=== PATIENT | male | born 1970 | race African-American/Black ===

== ENCOUNTER 2016-05-16 21:47 | Emergency (ER) | payer SELFPAY ==
[~2016-05-16] VITALS: Ht 167.6 cm; Wt 136.5 kg
[2016-05-16 22:09] VITALS: BP 186/106
[2016-05-16] MEDS ORDERED: Losartan 25mg tab ORAL ONE (22:30)
[2016-05-16] MEDS ORDERED: HYDROCHLOROTHIA25 MG ORAL (22:53)
[2016-05-16] MEDS ORDERED: LOSARTAN POTAS100 MG ORAL (22:53)
[2016-05-16 23:05] VITALS: BP 186/106
--- NOTE | 2016-05-17 00:42 | Emergency Room Report ---
History of Present Illness General Chief Complaint: Hypertension Source: Patient Present Illness HPI 46-year-old male presents ED for evaluation. Patient states his blood pressure is high. States that he took his last BP med 2 days ago. Denies any chest pain. Denies any dizziness. Denies any shortness of breath. Denies smoking or drug use. No other aggravating relieving factors. Denies any other associated symptoms Allergies: Coded Allergies: No Known Allergies (Unverified , 05/16/16) Patient History Past Medical History: HTN Past Surgical History: none Pertinent Family History: none Social History: Denies: alcohol use, drug use, smoking Immunizations: UTD Reviewed Nursing Documentation: PMH: Agreed, PSxH: Agreed Nursing Documentation-PMH Hx Hypertension: Yes Review of Systems All Other Systems: negative except mentioned in HPI Physical Exam Vital Signs Date Time Temp Pulse Resp B/P Pulse Ox O2 Delivery O2 Flow Rate FiO2 05/16/16 21:58 97.9 77 16 192/113 96 Room Air Sp02 EP Interpretation: reviewed, normal General Appearance: no apparent distress, alert, GCS 15, non-toxic, obese Head: normocephalic, atraumatic Eyes: bilateral eye PERRL, bilateral eye normal inspection ENT: hearing grossly normal, normal pharynx, no angioedema, normal voice Neck: full range of motion, supple/symm/no masses Respiratory: chest non-tender, lungs clear, normal breath sounds, speaking full sentences Cardiovascular #1: regular rate, rhythm, no edema Cardiovascular #2: 2+ carotid (R), 2+ carotid (L), 2+ radial (R), 2+ radial (L) , 2+ dorsalis pedis (R), 2+ dorsalis pedis (L) Gastrointestinal: normal bowel sounds, non tender, soft, non-distended, no guarding, no rebound Rectal: deferred Genitourinary: normal inspection, no CVA tenderness Musculoskeletal: back normal, gait/station normal, normal range of motion, non- tender Neurologic: alert, oriented x3, responsive, motor strength/tone normal, sensory intact, speech normal Psychiatric: judgement/insight normal, memory normal, mood/affect normal, no suicidal/homicidal ideation Reflexes: 3+ bicep (R), 3+ bicep (L), 3+ tricep (R), 3+ tricep (L), 3+ knee (R) , 3+ knee (L) Skin: normal color, no rash, warm/dry, well hydrated Lymphatic: no adenopathy Medical Decision Making Diagnostic Impression: Primary Impression: Hypertension Qualified Codes: I10 - Essential (primary) hypertension ER Course Hospital Course 46-year-old male presents ED complaining of elevated BP Differential diagnoses include: hypertensive urgency, hypertensive emergency, arrythmia, OK Clinical course Patient placed on stretcher. After initial history and physical I ordered EKG. I ordered patient 100 mg Losartan EKG - NSR, no acute changes This is asymptomatic hypertension and does not require further workup. Patient appears clinically well with negative exam. patient will be discharged on his home medications I. I feel this is a highly complex case requiring extensive working including EKG/Rhythm strip, Xray/CT/US, Blood/urine lab work, repeat exams while in ED, and administration of strong opiates/narcotics for pain control, admission to hospital or close patient follow up. Diagnosis - hypertension Stable and discharged to home with Rx Losartan, HCTZ. Instructed to followup with PMD. Return to ED if symptoms recur or worsen EKG Diagnostic Results Rate: normal Rhythm: NSR ST Segments: no acute changes ASA given to the pt in ED: No Rhythm Strip Diag. Results EP Interpretation: yes Rhythm: NSR, no PVC's, no ectopy Last Vital Signs Date Time Temp Pulse Resp B/P Pulse Ox O2 Delivery O2 Flow Rate FiO2 05/16/16 23:05 97.9 89 16 186/106 96 Room Air Status: improved Disposition: HOME, SELF-CARE Condition: Stable Scripts Losartan Potassium (LOSARTAN POTASSIUM) 100 Mg Tablet 100 MG ORAL DAILY, #30 TAB Prov: PORTILLO RESENDIZ M.D. 05/16/16 Hydrochlorothiazide* (HYDROCHLOROTHIAZIDE*) 25 Mg Tablet 25 MG ORAL DAILY, #30 TAB Prov: PORTILLO RESENDIZ M.D. 05/16/16 Referrals: NON PHYSICIAN (PCP) Patient Instructions: Hypertension, [id number] PORTILLO RESENDIZ M.D. May 17, 2016 00:42
--- NOTE | 2016-05-20 22:27 | Cardiology Report ---
APPROVED REPORT EKG Measurement Heart [id number] Sinus rhythm with 1st degree AV block Left axis deviation Cannot rule out Anterior infarct, age undetermined Abnormal ECG
== END 2016-05-16 23:05 | disposition home or self-care (01) ==
LOC: EMR 22:15
DX: I10 Essential (primary) hypertension (principal)
CPT/HCPCS: 93005; 99284

== ENCOUNTER 2019-01-15 06:22 | Emergency (ER) | payer OTHER ==
[~2019-01-15] VITALS: Ht 170.2 cm; Wt 142.9 kg
[~2019-01-15 06:22] MED LIST: HYDROCHLOROTHIA25 MG ORAL; LOSARTAN POTAS100 MG ORAL
[2019-01-15] MEDS ORDERED: CATAPRES0.1 MG ORAL (06:32)
[2019-01-15 06:45] VITALS: BP 190/93
[2019-01-15] MEDS ORDERED: Dicyclomine HCl 10mg/5ml oral soln ORAL ONE (06:45)
[2019-01-15] MEDS ORDERED: Mylanta II UD 30ml ORAL ONE (06:45)
[2019-01-15] MEDS ORDERED: DiphenhydrAMINE 50mg/ml Inj IVP ONE ×2 (06:45→07:30)
--- NOTE | 2019-01-15 06:45 | NUR ---
ED Nurse Note: pt presents to ED c/o LOPEZ and abd pain since yesterday. per pt he has been nauseated, has vomited once and has had multiple episodes of diarrhea that have been "all liquid." pt rates the LOPEZ pain a 10/10 and the abd px a 8/10. 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 pt has a h/o HTN but has not been regularly taking his losartan, he did not take it today. BP is 190/93. pt states that last time he experienced this was this time last year when he had a 24 hr viral gastritis.
[2019-01-15] MEDS ORDERED: ZOFRAN4 MG ORAL (06:47)
--- NOTE | 2019-01-15 06:47 | Emergency Room Report ---
History of Present Illness General Chief Complaint: Headache Source: Patient, Medical Record Present Illness HPI 48-year-old male history of hypertension, presents with nausea, 1 episode of vomiting, 10 episodes of diarrhea yesterday, constant, abdominal cramps no aggravating alleviating factors severity is moderate, constant patient presents for evaluation, he states he feels a little lightheaded, fatigue, no chest pain or shortness of breath he endorses chills but no fevers Allergies: Coded Allergies: No Known Allergies (Unverified , 05/16/16) Patient History Past Medical History: see triage record Reviewed Nursing Documentation: PMH: Agreed; PSxH: Agreed Nursing Documentation-PMH Past Medical History: No History, Except For Hx Hypertension: Yes Review of Systems All Other Systems: negative except mentioned in HPI Physical Exam Vital Signs Date Time Temp Pulse Resp B/P (MAP) Pulse Ox O2 Delivery O2 Flow Rate FiO2 01/15/19 06:25 98.4 95 18 204/138 (160) 96 Room Air Sp02 EP Interpretation: reviewed, normal General Appearance: well appearing, no apparent distress, alert Head: normocephalic, atraumatic Eyes: bilateral eye PERRL, bilateral eye EOMI ENT: uvula midline, dry mucus membranes Neck: supple, thyroid normal, supple/symm/no masses Respiratory: lungs clear, no respiratory distress, no retraction, no accessory muscle use Cardiovascular #1: normal peripheral pulses, regular rate, rhythm, no edema, no gallop, no murmur Gastrointestinal: non tender, soft, no guarding, no rebound Musculoskeletal: normal inspection Neurologic: alert, oriented x3 Psychiatric: mood/affect normal Skin: no rash, warm/dry Medical Decision Making Diagnostic Impression: Primary Impression: Gastroenteritis Additional Impression: Dehydration ER Course 48-year-old male presents with symptoms consistent with bowel gas rule enteritis , no chest pain or shortness of breath differential diagnosis includes gastroenteritis, diverticulitis, appendicitis, symptomatic control with medications, rehydration therapy Reevaluation patient's abdomen remains soft nontender, patient feels better with GI cocktail Labs nonfocal Counseled patient to follow-up with primary care doctor for outpatient stress testing as well as follow-up, will provide Zofran as an outpatient Strict abdominal return precautions were discussed include including return precautions for appendicitis Disposition Home Laboratory Tests Test 01/15/19 06:40 White Blood Count 6.9 K/UL (4.8-10.8) Red Blood Count 5.63 M/UL (4.70-6.10) Hemoglobin 16.3 G/DL (14.2-18.0) Hematocrit 45.3 % (42.0-52.0) Mean Corpuscular Volume 80 FL (80-99) Mean Corpuscular Hemoglobin 28.9 PG (27.0-31.0) Mean Corpuscular Hemoglobin Concent 35.9 G/DL (32.0-36.0) Red Cell Distribution Width 10.6 % (11.6-14.8) L Platelet Count 228 K/UL (150-450) Mean Platelet Volume 9.0 FL (6.5-10.1) Neutrophils (%) (Auto) 73.2 % (45.0-75.0) Lymphocytes (%) (Auto) 18.1 % (20.0-45.0) L Monocytes (%) (Auto) 6.6 % (1.0-10.0) Eosinophils (%) (Auto) 0.6 % (0.0-3.0) Basophils (%) (Auto) 1.5 % (0.0-2.0) Urine Color Yellow Urine Appearance Clear Urine pH 5 (4.5-8.0) Urine Specific [place] 1.015 (1.005-1.035) Urine Protein 2+ (NEGATIVE) H Urine Glucose (UA) Negative (NEGATIVE) Urine Ketones Negative (NEGATIVE) Urine Blood 2+ (NEGATIVE) H Urine Nitrite Negative (NEGATIVE) Urine Bilirubin Negative (NEGATIVE) Urine Urobilinogen Normal MG/DL (0.0-1.0) Urine Leukocyte Esterase 1+ (NEGATIVE) H Urine RBC 2-4 /HPF (0 - 0) H Urine WBC 5-10 /HPF (0 - 0) H Urine Squamous Epithelial Cells Occasional /LPF Urine Bacteria Occasional /HPF (NONE) Urine Mucus Few /LPF (NONE/OCC) H Sodium Level 136 MMOL/L (136-145) Potassium Level 3.7 MMOL/L (3.5-5.1) Chloride Level 103 MMOL/L (98-107) Carbon Dioxide Level 30 MMOL/L (21-32) Anion Gap 3 mmol/L (5-15) L Blood Urea Nitrogen 15 mg/dL (7-18) Creatinine 1.4 MG/DL (0.55-1.30) H Estimate Glomerular Filtration Rate > 60 mL/min (>60) Glucose Level 144 MG/DL (74-106) H Calcium Level 8.6 MG/DL (8.5-10.1) Phosphorus Level 2.9 MG/DL (2.5-4.9) Magnesium Level 1.8 MG/DL (1.8-2.4) Total Bilirubin 0.9 MG/DL (0.2-1.0) Aspartate Amino Transferase (AST) 25 U/L (15-37) Alanine Aminotransferase (ALT) 39 U/L (12-78) Alkaline Phosphatase 70 U/L (46-116) Troponin I 0.038 ng/mL (0.000-0.056) Total Protein 8.5 G/DL (6.4-8.2) H Albumin 3.9 G/DL (3.4-5.0) Globulin 4.6 g/dL Albumin/Globulin Ratio 0.8 (1.0-2.7) L Lipase 78 U/L (73-393) EKG Diagnostic Results EKG Time: 06:39 EP Interpretation: NSR, rate 98, right axis deviation, QTC 454, no acute ST elevations, ST Segments: other - flipped t waves inferolateral leads, no old ekg for comparison Rhythm Strip Diag. Results Rhythm Strip Time: 06:49 EP Interpretation: yes Rate: 88 Rhythm: NSR, no PVC's, no ectopy Last Vital Signs Date Time Temp Pulse Resp B/P (MAP) Pulse Ox O2 Delivery O2 Flow Rate FiO2 01/15/19 06:25 98.4 95 18 204/138 (160) 96 Room Air Disposition: HOME, SELF-CARE Condition: Stable Scripts Ondansetron (Zofran) 4 Mg Tablet 4 MG ORAL Q8H PRN for Nausea & Vomiting, #12 TAB 0 Refills Prov: Caleb Quintana MD 01/15/19 Referrals: NOT CHOSEN VY/,REFERRING (PCP) [facility] Tiffanie Oneill Comp. [facility] Departure Forms: Return to Work Return to Work Date: Jan 18, 2019 Patient Instructions: Dehydration, Adult, [id number], Viral Gastroenteritis, Adult, [id number] Additional Instructions: The patient was provided with discharge instructions, notified to follow-up with a primary care doctor and or specialist in the next 24-48 hours, and to return to the ED if they have worsening of their symptoms. Please note that this report is being documented using [employer] technology. This can lead to erroneous entry secondary to incorrect interpretation by the dictating instrument. Caleb Quintana MD Jan 15, 2019 06:47
[2019-01-15 06:48] LABS: APPEARANCE,URINE CLEAR; BILIRUBIN, URINE NEGATIVE (NEGATIVE); GLUCOSE, URINE (UA) NEGATIVE (NEGATIVE); KETONES,URINE NEGATIVE (NEGATIVE); LEUKOCYTE ESTERASE ,URINE 1+ (NEGATIVE); NITRITE,URINE NEGATIVE (NEGATIVE); PH,URINE 5 (4.5-8.0); PROTEIN,URINE 2+ (NEGATIVE); UROBILINOGEN,URINE NORMAL MG/DL (0.0-1.0)
[2019-01-15 06:52] LABS: COLOR,URINE YELLOW
--- NOTE | 2019-01-15 06:59 | NUR ---
HAND-OFF: Report given to SUZY Herbert.
--- NOTE | 2019-01-15 07:00 | NUR ---
ED Nurse Note: Received report from SUZY Kaplan. Observed patient in bed with eyes closed, appears to bed sleeping. No s/s of distress/pain/discomfort at this time. IV on right AC intact and patent with IV fluids infusing. Will continue to monitor.
[2019-01-15 07:07] LABS: ANION GAP 3 mmol/L (5-15); BLOOD UREA NITROGEN 15 mg/dL (7-18); CALCIUM 8.6 MG/DL (8.5-10.1); CARBON DIOXIDE 30 MMOL/L (21-32); CHLORIDE 103 MMOL/L (98-107); CREATININE 1.4 MG/DL (0.55-1.30); POTASSIUM 3.7 MMOL/L (3.5-5.1); SODIUM 136 MMOL/L (136-145)
[2019-01-15 07:10] LABS: BASOPHILS % (AUTO) 1.5 % (0.0-2.0); EOSINOPHILS % (AUTO) 0.6 % (0.0-3.0); HEMATOCRIT 45.3 % (42.0-52.0); HEMOGLOBIN 16.3 G/DL (14.2-18.0); LYMPHOCYTES % (AUTO) 18.1 % (20.0-45.0); MEAN CORPUSCULAR VOLUME 80 FL (80-99); MONOCYTES % (AUTO) 6.6 % (1.0-10.0); NEUTROPHILS % (AUTO) 73.2 % (45.0-75.0); PLATELET COUNT 228 K/UL (150-450); RED BLOOD COUNT 5.63 M/UL (4.70-6.10); RED CELL DISTRIBUTION WIDTH 10.6 % (11.6-14.8); WHITE BLOOD COUNT 6.9 K/UL (4.8-10.8)
[2019-01-15 07:11] LABS: ALANINE AMINOTRANSFERASE 39 U/L (12-78); ALBUMIN 3.9 G/DL (3.4-5.0); ALBUMIN/GLOBULIN RATIO 0.8 (1.0-2.7); ALKALINE PHOSPHATASE 70 U/L (46-116); ASPARTATE AMINO TRANSFERASE 25 U/L (15-37); BILIRUBIN,TOTAL 0.9 MG/DL (0.2-1.0); PHOSPHORUS 2.9 MG/DL (2.5-4.9)
--- NOTE | 2019-01-15 07:20 | NUR ---
ED Nurse Note: Patient noted to be sitting on the chair, c/o being uncomfortable and wants to go home. ERMD notified and made aware. ERMD at bedside, with new orders for patient, will carry out. IV fluids ongoing. will continue to monitor patient.
--- NOTE | 2019-01-15 07:32 | NUR ---
HAND-OFF: Report given to SUZY Rush.
[2019-01-15 07:48] VITALS: BP 183/94
[2019-01-15 07:49] VITALS: BP 183/94
--- NOTE | 2019-01-15 07:49 | NUR ---
ER DISCHARGE NOTE: Patient is cleared to be discharged per Lilian BRASWELL Dr, pt is aox4, on room air, with vital signs left arm BP : 183/94, P: 88, R: 20, T: 98.0 and SPO2: 100% on room air. Rechecked BP on right arm of 199/118. Pt has no reports of dizziness or headache. MD made aware. Explained to pt to take home bp meds. pt was given dc and prescription instructions, pt was able to verbalize understanding, pt id band and iv site removed without complications. pt is able to ambulate with steady gait. pt took all belongings. Addendum: 01/15/19 at 0756 by RUBA Explained to patient to take home meds per MD order.
--- NOTE | 2019-01-15 19:20 | Cardiology Report ---
APPROVED REPORT EKG Measurement Heart [id number] Normal sinus rhythm Right axis deviation Abnormal ECG
== END 2019-01-15 07:49 | disposition home or self-care (01) ==
LOC: EMR 06:33
DX: K52.9 Noninfective gastroenteritis and colitis, unspecified (principal); E86.0 Dehydration; I10 Essential (primary) hypertension
CPT/HCPCS: 36415; 80053; 81003; 83690; 83735; 84100; 84484; 85025; 93005; 96361; 96374; 96375; 96376; J0780; J1200; J7030; S0028; Z7502; 99284